=== PATIENT | female | born 1940 | race Caucasian/White ===

== ENCOUNTER → 2023-05-20 13:42 | Outpatient (CLI) | payer MEDICARE, SELFPAY ==
--- NOTE | ~2023-05-20 | CT_ITS ---
CT head without contrast Indication: Acute dementia Technique: Serial scans were obtained through the brain without the administration of contrast. Dose reduction technique was used on this scan by utilizing automated exposure control and iterative recon struction technique. The dose-length product (DLP) was 599.57 mGy-cm. Findings: Hypodensity in the inferior right frontal lobe is felt to be likely artifactually due to be am hardening, however vasogenic edema in this region is not completely excluded. No intracranial hemo rrhage or acute infarct seen. The ventricles and subarachnoid spaces are dilated, consistent with mi nimal atrophy. Minimal low attenuation regions are seen within the periventricular white matter bilat erally, likely representing changes from chronic microvascular ischemic disease. There is no evidence of edema, mass effect or midline shift. The visualized paranasal sinuses and mastoid air cells are clear. Impression: Probable artifactual hypodensity in the inferior right frontal lobe versus possibly vasogenic edema. Consider pre and postcontrast MR to better exclude underlying mass or other source of vasogenic edema . Atrophy and chronic white matter changes, as above. Reviewed, dictated and finalized at location . STAMPER Impression: Probable artifactual hypodensity in the inferior right frontal lobe versus poss ibly vasogenic edema. Consider pre and postcontrast MR to better exclude underl qi mass or other source of vasogenic edema. Atrophy and chronic white matter changes, as above.
== END ==
PROVIDERS: PCP Family Medicine Adolescent Medicine; Visit Provider Family Medicine Adolescent Medicine
DX: F03.90 Unspecified dementia, unspecified severity, without behavioral disturbance, psychotic disturbance, mood disturbance, and anxiety (principal)
CPT/HCPCS: 70450

== ENCOUNTER → 2023-06-06 13:20 | Outpatient (CLI) | payer MEDICARE, SELFPAY ==
--- NOTE | ~2023-06-06 | MR_ITS ---
EXAMINATION: MR brain/brain stem wo/w con DATE: 06/06/2023 14:42 INDICATION: Right frontal lobe mass. Abnormal head CT. TECHNIQUE: Magnetic resonance imaging (MRI) of the brain and brainstem was performed without and with 13 mL MultiHance intravenous contrast. COMPARISON: Head CT 05/20/2023 FINDINGS: In the right frontal lobe and insula, there is a subacute infarct characterized by increase d T2-weighted signal intensity, cortical increased T1-weighted signal intensity, and cortical enhance ment. There are scattered areas of nonspecific increased T2-weighted signal intensity in the cerebral white matter, which is within normal limits for the patient's age. There is no intracranial hemorrha ge or abnormal mass lesion. The ventricles are normal in size. There are likely changes of ocular aquilino s replacement surgeries. There is mild mucosal thickening in the paranasal sinuses. The mastoid air c ells are normal. IMPRESSION: 1. 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 Reviewed, dictated and finalized at location E. ESS DEVELOPMENT MANAGER
== END ==
PROVIDERS: PCP Family Medicine Adolescent Medicine; Visit Provider Family Medicine Adolescent Medicine
DX: R90.89 Other abnormal findings on diagnostic imaging of central nervous system (principal)
CPT/HCPCS: 70553; A9577

== ENCOUNTER 2023-10-14 16:10 | Inpatient (IN) | payer MEDICARE, SELFPAY ==
[2023-10-13] VITALS (21 sets, daily range): BP systolic 116–173; BP diastolic 39–75; PULSE 48–74; RESP 13–18; TEMP 36.2–36.9; O2SAT 97–100; BMI 22.9; BMI 25.4
--- NOTE | 2023-10-13 07:55 | ECG_ITS ---
SEE SCANNED COPY FOR CONFIRMED REPORT MTDD
[2023-10-13 08:08] LABS: Basophils Absolute Auto 0.1 K/mm3 (0.0-0.1); Basophils Percent Auto 0.9 % (0.2-1.2); Eosinophils Absolute Auto 0.5 K/mm3 (0-0.3); Eosinophils Percent Auto 6.9 % (0-4.4); Hematocrit 36.6 % (37.0-47.0); Hemoglobin 11.7 g/dL (12.0-15.0); Immature Granulocyte Absolute 0.02 K/mm3 (0.00-0.031); Immature Granulocyte Percent A 0.3 % (0-0.5); Lymphocytes Absolute Auto 1.78 K/mm3 (0.9-3.2); Lymphocytes Percent Auto 26.6 % (18.3-44.2); Mean Corpuscular Volume 90.8 fl (80-100); Mean Platelet Volume 10.4 fl (7.4-10.4); Monocytes Absolute Auto 0.7 K/mm3 (0.1-0.6); Monocytes Percent Auto 9.7 % (2.6-8.5); Neutrophils Absolute Auto 3.7 K/mm3 (1.3-6.7); Neutrophils Percent Auto 55.6 % (45.5-73.1); Platelet Count Result 211 k/mm3 (150-375); Red Blood Count 4.03 M/mm3 (4.2-5.4); White Blood Count 6.7 K/mm3 (4.5-10.0)
[2023-10-13 08:18] LABS: INR 1.3; Prothrombin Time 16.7 Seconds (11.1-14.7)
[2023-10-13 08:21] LABS: Anion Gap 7 mmol/L (4-12); Blood Urea Nitrogen 25 mg/dL (7-17); Calcium 9.8 mg/dL (8.4-10.2); Carbon Dioxide 25 mmol/L (22-30); Chloride 106 mmol/L (98-107); Estimated CRCL calculation 35 ml/min; Estimated Glomerular Filt Rate 60; Glucose 82 mg/dL (65-110); Potassium 4.1 mmol/L (3.4-5.0); Sodium 138 mmol/L (137-145)
--- NOTE | 2023-10-13 08:40 | WPDMODSED ---
Moderate Sedation Note-Pt Data Patient Data Diagnosis: Sick sinus syndrome Present Complaint: recent CVA, otherwise no complaints Procedure to be performed/Plan: implantation of permanent pacemaker Allergies Allergy/AdvReac Type Severity Reaction Status Date / Time Penicillins Allergy Unknown Unknown Verified 10/13/23 08:03 Home Medications Medication Instructions Recorded Confirmed Type aspirin 81 mg chewable tablet 162 mg PO HS 05/08/20 10/13/23 History (Aspirin Childrens) beclomethasone dipropionate 80 1 inh inhalation Q12H 05/08/20 05/12/23 History mcg/actuation HFA breath activated aerosol (Qvar RediHaler) benzonatate 200 mg capsule 200 mg PO TID PRN Cough 09/05/23 10/13/23 History dicyclomine 20 mg tablet 20 mg PO QID PRN Diarrhea 09/05/23 10/13/23 History fluocinonide 0.1 % topical cream 1 applic topical BID #30 grams 09/05/23 10/13/23 Rx alpha lipoic acid 200 mg capsule 200 mg PO DAILY 10/13/23 10/13/23 History ascorbic acid (vitamin C) 1,000 mg 1 g PO DAILY 10/13/23 10/13/23 History tablet calcium carbonate 600 mg-vitamin 2 tablet PO DAILY 10/13/23 10/13/23 History D3 10 mcg (400 unit) tablet (Calcium 600 + D(3)) carboxymethylcellulose 0.5 1 drp EACH EYE BID 10/13/23 10/13/23 History %-glycerin 0.9 % eye drops (Refresh Optive) escitalopram oxalate 10 mg tablet 10 mg PO HS 10/13/23 10/13/23 History hydrocodone 5 mg-acetaminophen 325 1 tablet PO TID PRN Pain (Scale 10/13/23 10/13/23 History mg tablet Score 4-6) losartan 100 mg tablet 100 mg PO HS 10/13/23 10/13/23 History montelukast 10 mg tablet 10 mg PO DAILY 10/13/23 10/13/23 History naproxen 500 mg tablet 500 mg PO BID 10/13/23 10/13/23 History nifedipine 30 mg tablet,extended 30 mg PO DAILY 10/13/23 10/13/23 History release omega-3 fatty acids 1,000 mg PO DAILY 10/13/23 10/13/23 History rosuvastatin 5 mg tablet 5 mg PO HS 10/13/23 10/13/23 History vitamin B complex 1 tablet PO DAILY 10/13/23 10/13/23 History vitamin E (dl, acetate) 180 mg 180 mg PO DAILY 10/13/23 10/13/23 History (400 unit) capsule Current Medications: Active Medications Sodium Chloride (Normal Saline Iv) 500 mls @ 30 mls/hr IV CONT .[id number] ONE Stop: 10/13/23 23:39 Sedation/Anesthesia: No previous sedation/anesthesia problems (including family history). [facility] Past Medical History Medical History Greater trochanteric bursitis of both hips Hypertension Osteoarthritis of right knee Pes anserine bursitis Pes anserinus bursitis of right knee Surgical History Surgical History H/O: History of eyelid surgery S/P scar revision Family History Family History Unknown Arthritis Cancer Heart disease Father Acute myocardial infarction Arthritis Heart disease Grandparent Acute myocardial infarction Arthritis Cancer Heart disease Mother Arthritis Breast cancer Cancer Depression Sibling Colon polyp Son Diabetes mellitus Social History Social History Smoking status: Never smoker Second hand tobacco smoke exposure: Yes Alcohol intake: current Alcohol use details: 1-2 per month Substance use: never Substance use type: does not use Living arrangements: alone Occupation/Education: retired Gender identity (if verbalized by the patient): Female Sexual Orientation (if Verbalized by the Patient): Straight or Heterosexual Spiritual care concerns: No Agree to blood products: Yes Mod Sed Physical Exam Physical Exam Pre Procedural Exam: Normal: Appearance ( pleasant elderly white female no distress), Neck, Throat, Airway, Lungs, Heart Size, Heart Rhythm, Neuro Exam and Extremities and Variation: Heart Rate ( heart rate 40) Hours since solid foods: 12 Hours [facility]
--- NOTE | 2023-10-13 10:17 | ECG_ITS ---
SEE SCANNED COPY FOR CONFIRMED REPORT MTDD
--- NOTE | 2023-10-13 10:18 | WPDCARDPROC ---
Cardiac Cath Procedure Note Date of procedure:: 10/13/23 Performing physician:: Tobias Henley MD Indication:: 6 sinus syndrome with symptomatic bradycardia Brief clinical history:: this is an 83-year-old woman with sick sinus syndrome also with asystolic pauses as long as 5-6 seconds admitted as an outpatient today for elective implantation of a dual-chamber pacemaker system. Procedure Procedure performed:: Implantation of permanent Biotronik dual-chamber pacemaker Sedation/Medication given:: fentanyl 25 mg Versed 2 mg case start time 9:09 a.m. case end time 10:04 a.m. sedation provided by Joan Bird RN, trained observer Access site:: left subclavian vein Estimated blood loss:: 20 cc Procedure note:: patient was brought to the cardiac catheterization the postabsorptive state where the left anterior chest wall was prepped and draped in standard fashion. 20 cc of lidocaine was infiltrated inferior to the clavicle after this an incision was made for about 1 in below the clavicle from the midclavicular line to the deltopectoral groove. Using electrocautery cutaneous hemostasis was provided. Following this sharp and blunt dissection was used to separate the subcutaneous tissue and identify the prepectoral fascia. Using blunt dissection a pacemaker pocket was created inferior to the incision. This was then packed with antibiotic soaked 4 x 4. Attention was then turned to venous access. Using 2 separate punctures the subclavian vein was punctured and 2 J-tip guidewires were advanced into the venous circulation down to the right atrial position under fluoroscopic visualization. Using 2 6 Nepali safe sheaths the pacemaker leads detailed below were advanced into the venous circulation and positioned into the right atrium. Attention was then turned to positioning of the ventricular lead. The stylet was withdrawn 3 cc syringe was used to fashion a J-tip stylet allowing the to steer the ventricular lead through the right ventricle out to the pulmonary artery position. Straight stylet was then placed into the lead was withdrawn and placed into the right ventricular apical position. The fixation screw was deployed and using the analyzer appropriate pacing and sensing performance was demonstrated. A 10 volts stimulation showed no evidence of extracardiac stimulation. Following this attention was turned to positioning of the atrial lead. Positioning of the atrial lead was somewhat challenging as I will was unable to rotate the lead into standard fluoroscopic position for the right atrial Appendage. A more lateral position was then identified with good lead movement however upon extending the deployment screw this lead stimulated a supraventricular tachycardia. The fixation screw was then withdrawn the lead was then repositioned in a more medial position but still not in what fluoroscopically appears to be the appendage. There was good electro mechanical engineer movement however. Following deployment of the fixation screw the lead was fixed into position. The analyzer demonstrated appropriate pacing sensing performance in this position. Once again a 10 volt stimulation showed no extracardiac stimulation. This was accepted as the final position. Following this the leads were secured to the base of the pocket using the suture sleeves and 2-0 silk ties. The retained sponge was removed from the pocket and vancomycin infused saline was used to irrigate the pocket. following this the generator was connected to the leads using the torque wrench and the entire assembly was placed into the newly created pocket. This was then closed in layers using 3-0 Vicryl in interrupted fashion for the subcutaneous tissue and 4-0 Vicryl in a running subcuticular fashion for the skin. The was dressed with Aquacel dressing. She was taken to the holding area for post implant recovery. The procedure was well tolerated and there were no apparent complications. Postop
--- NOTE | 2023-10-13 11:20 | SUR.PHASEII ---
End Phase II recovery. Pt. admitted to extended recovery after outpatient PPM insertion. Remains in TELEPHONE ANSWERING SERVICE OPERATOR 3 for now until Tele bed available for tranfer out. See PCS for further documentation.
--- NOTE | 2023-10-13 11:21 | ADMGEN ---
This patient, Radha Yu, was admitted to 3 Med Surg/Tele (remains in MED PEDS 3) as extended recovery after outpatient procedure. Patient/family oriented to hospital policies and general routines including ID bracelet, bed and alarms, visiting hours, pain management, procedures, bathroom and other care routines, personal items, smoking policy, room service/diet, and visiting hours. Information on how to activate the Rapid Response Team has been discussed. Patient/Family are encouraged to report perceived risks to care and to ask questions if they do not understand what they are told or what they should do.
[2023-10-13] MEDS: SODIUM CHLORIDE 0.9% IV 1,000 ML 50 ML IV CONT (15:20)
[2023-10-13] MEDS: NIFEdipine 30 MG TAB.ER.24 PO (16:46)
--- NOTE | 2023-10-13 17:00 | PC.NURSE ---
Report called to Rosa CROWLEY on Med/Surg Tele. Pt. is to transfer to [facility] via bed to complete extended recovery stay. Pt. and son, Rogerio, aware and agreeable.
--- NOTE | 2023-10-13 17:20 | ADMGEN ---
This patient, Radha Yu, was admitted to [facility]. Patient/family oriented to hospital policies and general routines including ID bracelet, bed and alarms, visiting hours, pain management, procedures, bathroom and other care routines, personal items, smoking policy, room service/diet, and visiting hours. Information on how to activate the Rapid Response Team has been discussed. Patient/Family are encouraged to report perceived risks to care and to ask questions if they do not understand what they are told or what they should do.
[2023-10-13] MEDS: ARTIFICIAL TEARS OPHTH SOLN 15 ML BOTTLE 1 DROP EACH EYE (17:43)
[2023-10-13] MEDS: ROSUVASTATIN 5 MG TABLET PO (20:18)
[2023-10-13] MEDS: ESCITALOPRAM OXALATE 10 MG TABLET PO (20:18)
[2023-10-13] MEDS: LOSARTAN POTASSIUM 100 MG TABLET PO (20:18)
[2023-10-13] MEDS: VANCOMYCIN 1,000 MG/NS 250 ML 1,000 MG/250 ML BAG 250 MG IVPB (20:48)
[2023-10-14] VITALS (12 sets, daily range): BP systolic 133–155; BP diastolic 52–61; PULSE 60–65; RESP 17–18; TEMP 36.2–36.5; O2SAT 97–100
--- NOTE | ~2023-10-14 | XR_ITS ---
EXAMINATION: XR chest 2V DATE: 10/15/2023 10:34 INDICATION: Pneumothorax post left-sided pacemaker placement TECHNIQUE: frontal and lateral views of the chest were obtained. COMPARISON: Chest radiograph dated 10/14/2023 FINDINGS: Patient is rotated slightly towards the right. No significant interval change in a moderate sized lef t pneumothorax with partial collapse of the left lung. Right lung remains clear. No pulmonary edema, pleural effusion or right-sided pneumothorax. Cardiomegaly. Dual lead pacemaker seen with leads proje cting over the expected locations of the right atrium and right ventricle. IMPRESSION: 1. No significant change in a moderate-sized left pneumothorax with partial collapse of the left lung . 2. Cardiomegaly. Reviewed, dictated and finalized at location A. IMPRESSION: 1. No significant change in a moderate-sized left pneumothorax with partial col lapse of the left lung. 2. Cardiomegaly.
--- NOTE | ~2023-10-14 | XR_ITS ---
EXAMINATION: XR chest 2V DATE: 10/14/2023 10:39 INDICATION: 24 hour postpacemaker insertion TECHNIQUE: PA and lateral views of the chest were obtained. COMPARISON: Chest radiograph dated 10/13/2023 FINDINGS: Patient is rotated towards the right. There is a new moderate-sized left pneumothorax. Mild left infr ahilar opacities most likely secondary atelectasis. Right lung is clear. No pulmonary edema, pleural effusion or right-sided pneumothorax. Cardia mediastinal silhouette is unchanged with mild cardiomega ly and no new midline shift to suggest tension. Dual lead pacemaker seen with leads projecting over t he expected locations of the right atrium and right ventricle. IMPRESSION: 1. Moderate-sized left pneumothorax. Findings were discussed with Ashley hathaway, the nurse caring for the patient, at 10:50 AM. 2. Mild cardiomegaly. Reviewed, dictated and finalized at location B. IMPRESSION: 1. Moderate-sized left pneumothorax. Findings were discussed with Ashley da silva, the nurse caring for the patient, at 10:50 AM. 2. Mild cardiomegaly.
--- NOTE | ~2023-10-14 | XR_ITS ---
EXAMINATION: XR chest 1V portable DATE: 10/13/2023 10:33 INDICATION: Pacer placement. TECHNIQUE: A single frontal view of the chest was obtained. COMPARISON: Chest 2 views 03/11/2019 FINDINGS: The patient is rotated to her right. There is mild atelectasis in right midlung zone. No pl eural effusion or pneumothorax. The heart size is normal. There is a left chest wall pacer with leads in the right atrium and right ventricle. IMPRESSION: 1. Mild atelectasis in right midlung zone. Reviewed, dictated and finalized at location A.
[2023-10-14] MEDS: ARTIFICIAL TEARS OPHTH SOLN 15 ML BOTTLE 1 DROP EACH EYE ×2 (08:59→16:56)
[2023-10-14] MEDS: MONTELUKAST SODIUM 10 MG TABLET PO (09:00)
[2023-10-14] MEDS: NIFEdipine 30 MG TAB.ER.24 PO (09:00)
--- NOTE | 2023-10-14 11:24 | PM.PNCARD ---
Progress Note: A&P Assessment and Plan (1) Sick sinus syndrome: Code(s): I49.5 - Sick sinus syndrome Status: Acute Assessment and Plan: Now s/p Biotronik pacer on 10/14/23. Pacemaker interrogation this morning showed normal functioning device Follow up CXR today showed moderate sized pneumo Continue observation and will have surgery follow along in the event a chest tube is needed. Arranged outpatient follow up in our office (2) Pneumothorax: Code(s): J93.9 - Pneumothorax, unspecified Status: Acute Assessment and Plan: Has a moderate sized pneumo s/p PPM placement. She is stable and in no respiratory distress. Consult general surgery. Appreciate recs (3) Presence of cardiac pacemaker: Onset Date: 10/2023 Code(s): Z95.0 - Presence of cardiac pacemaker Status: Acute Assessment and Plan: As above. Subjective Date/time seen: 10/14/23 11:24 Interval history: Cardiology follow up for sick sinus syndrome, s/p PPM placement Date of service 10/14/2023: Feels well today. Complaining of a cough. She denies any chest pain or shortness of breath. Notes that she has significant weakness in her legs but this is not new. Review of Systems Review of Systems: All systems reviewed & are unremarkable except as noted in HPI and below Exam Const: General: comfortable, no acute distress, alert and awake Orientation/consciousness: patient oriented x3 HENMT: Head: normal to inspection Eyes: General: appearance normal, both eyes and all related structures Pupils: Equal, round and reactive pupils present Neck: Neck: normal visual inspection, supple and no JVD Carotids: normal carotid upstroke Chest: Other: Left pectoral incision covered with sterile dressing. No drainage, no hematoma Resp: Effort & Inspection: normal respiratory effort Auscultation: clear to auscultation bilaterally and diminished lung sounds on the left Cardio: Rate: regular rate Rhythm: regular rhythm Heart sounds: S1 normal heart sound present, S2 normal heart sound present and Murmur heart sound present GI: Auscultation: normal bowel sounds Skin: General skin exam: normal color Neuro: General: patient oriented x3 Cranial nerves: Yes Equal, round and reactive pupils present Extrem: General: normal to inspection Psych: Appearance: grossly normal Mental Status: mental status grossly normal Objective Data Vital Signs Vital Signs: Vital Signs - 24 hr 10/13/23 11:45 10/13/23 12:15 10/13/23 12:00 Temperature Pulse Rate 62 61 62 Respiratory Rate 16 16 Blood Pressure 173/65 H 141/71 H Pulse Oximetry 100 100 Oxygen Delivery Room Air Room Air 10/13/23 13:15 10/13/23 17:30 10/13/23 17:45 Temperature 36.3 C L 36.3 C L Pulse Rate 74 58 L 60 Respiratory Rate 18 16 16 Blood Pressure 138/75 135/73 146/68 H Pulse Oximetry 99 98 99 Oxygen Delivery 10/13/23 17:20 10/13/23 14:00 10/13/23 16:00 Temperature Pulse Rate 67 60 Respiratory Rate Blood Pressure Pulse Oximetry 98 Oxygen Delivery Room Air 10/13/23 18:15 10/13/23 14:15 10/13/23 15:15 Temperature 36.3 C L Pulse Rate 62 61 61 Respiratory Rate 16 18 18 Blood Pressure 120/62 134/66 147/62 H Pulse Oximetry 99 98 99 Oxygen Delivery 10/13/23 16:15 10/13/23 20:02 10/13/23 20:00 Temperature 36.9 C 36.4 C L Pulse Rate 65 60 62 Respiratory Rate 16 16 Blood Pressure 171/68 H 122/73 Pulse Oximetry 100 98 Oxygen Delivery 10/13/23 23:19 10/14/23 00:00 10/14/23 03:49 Temperature 36.2 C L 36.2 C L Pulse Rate 62 61 61 Respiratory Rate 18 17 Blood Pressure 116/58 L 135/60 Pulse Oximetry 98 98 Oxygen Delivery 10/14/23 04:00 10/14/23 08:00 10/14/23 08:02 Temperature 36.5 C Pulse Rate 61 65 62 Respiratory Rate 18 Blood Pressure 138/52 L Pulse Oximetry 97 Oxygen Delivery 10/14/23 11:08 Temperature Pulse Rate 61 Respiratory Rate 18 B
--- NOTE | 2023-10-14 11:36 | PM.CNGS ---
Assessment and Plan Assessment and plan (1) Pneumothorax: Code(s): J93.9 - Pneumothorax, unspecified Status: Acute Assessment and Plan: Patient with an iatrogenic moderate-sized left pneumothorax status post pacemaker placement. Patient is currently stable and completely asymptomatic. We would recommend to continue to monitor closely overnight. Add incentive spirometry. Will repeat a chest x-ray tomorrow morning. If patient becomes symptomatic or has any deterioration, then she may require chest tube placement. This was discussed in detail with the patient. (2) Presence of cardiac pacemaker: Onset Date: 10/2023 Code(s): Z95.0 - Presence of cardiac pacemaker Status: Acute (3) Sick sinus syndrome: Code(s): I49.5 - Sick sinus syndrome Status: Acute Plan I have discussed the patient's case and plan of care with Dr. Andres. Thank you for allowing us to see the patient in consultation and we will continue to follow along with you. History of Present Illness Consult details Consult date: 10/14/23 Reason for consult: other (Left pneumothorax) Requesting physician: Melinda Main APN-C Narrative: This is an 83-year-old woman who presented yesterday for pacemaker placement for sick sinus syndrome. Her procedure was uneventful and postprocedure chest x-ray showed mild atelectasis. She was kept overnight for observation and her repeat chest x-ray this morning showed a moderate-sized left pneumothorax. We have now been consulted for surgical evaluation of the pneumothorax. She is seen on the medical floor and appears comfortable. She denies any chest pain or shortness of breath. Vital signs are stable. She is on room air with an O2 saturation of 98%. Review of Systems Review of Systems: All systems reviewed & are unremarkable except as noted in HPI and below PMFSH Past Medical History Medical History Greater trochanteric bursitis of both hips Hypertension Osteoarthritis of right knee Pes anserine bursitis Pes anserinus bursitis of right knee Surgical History Surgical History H/O: History of eyelid surgery History of permanent cardiac pacemaker placement (10/2023) S/P scar revision Family History Family History Unknown Arthritis Cancer Heart disease Father Acute myocardial infarction Arthritis Heart disease Grandparent Acute myocardial infarction Arthritis Cancer Heart disease Mother Arthritis Breast cancer Cancer Depression Sibling Colon polyp Son Diabetes mellitus Social History Social History Smoking packs per day: 0 Smoking cigarettes per day: 0.0 Years smoked: 0 Smoking pack-years: 0.00 Smoking status: Never smoker Second hand tobacco smoke exposure: Yes Alcohol intake: former Alcohol use details: 1-2 per month Substance use: never Substance use type: does not use Do You Feel Safe in your Home?: Yes Lack of Transportation: No Lack of Food: Never True Current Housing: I Have Housing Concerned About Future Housing: No Difficulty Paying Gas/Electric Bills: No Difficulty Paying for Meds: No Currently Unemployed: No Education: High School Diploma/GED Difficulty w/ Childcare or Family Care: No Living arrangements: alone Additional living arrangements comments: LIVES W/ DOG. Occupation/Education: retired Gender identity (if verbalized by the patient): Female Sexual Orientation (if Verbalized by the Patient): Straight or Heterosexual Spiritual care concerns: No Agree to blood products: Yes Meds Home Medications and Allergies Home Medications Medication Instructions Recorded Confirmed Type aspirin 81 mg chewable tablet 162 mg PO HS 05/08/2024 H
[2023-10-14] MEDS: BENZONATATE 100 MG CAPSULE 200 MG PO ×2 (11:53→18:52)
[2023-10-14] MEDS: ROSUVASTATIN 5 MG TABLET PO (22:25)
[2023-10-14] MEDS: LOSARTAN POTASSIUM 100 MG TABLET PO (22:25)
[2023-10-14] MEDS: ESCITALOPRAM OXALATE 10 MG TABLET PO (22:28)
[2023-10-15] VITALS: PULSE 61
[2023-10-15 04:00] VITALS: PULSE 62
[2023-10-15 06:00] VITALS: BP 136/60; PULSE 70; RESP 18; TEMP 36.9; O2SAT 100
[2023-10-15 08:00] VITALS: PULSE 69
[2023-10-15 10:50] VITALS: O2SAT 100
[2023-10-15] MEDS: NIFEdipine 30 MG TAB.ER.24 PO (10:57)
[2023-10-15] MEDS: MONTELUKAST SODIUM 10 MG TABLET PO (10:57)
[2023-10-15] MEDS: BENZONATATE 100 MG CAPSULE 200 MG PO (10:58)
[2023-10-15] MEDS: ARTIFICIAL TEARS OPHTH SOLN 15 ML BOTTLE 1 DROP EACH EYE (10:58)
--- NOTE | 2023-10-15 11:42 | PM.PNGS ---
Progress Note: A&P Assessment and Plan (1) Pneumothorax: Code(s): J93.9 - Pneumothorax, unspecified Status: Acute Assessment and Plan: Left pneumothorax stable on chest x-ray this morning. Okay to discharge from a surgical standpoint. Will repeat a chest x-ray next Friday and have her follow-up in the office with Dr. Andres next week. (2) Presence of cardiac pacemaker: Onset Date: 10/2023 Code(s): Z95.0 - Presence of cardiac pacemaker Status: Acute Plan I have discussed the patient's case and plan of care with Dr. Andres. Subjective Subjective Date/Time Seen: 10/15/23 11:42 Patient reports: no new complaints Interval history: Patient did well overnight. No shortness of breath or chest pain. No new complaints. Exam Const: General: comfortable and no acute distress Chest: Chest palpation & inspection: no crepitus Resp: Effort & Inspection: no respiratory distress Auscultation: diminished lung sounds (L>R) Objective Data Vital Signs Vital Signs: Vital Signs - 24 hr 10/14/23 12:00 10/14/23 12:02 10/14/23 14:00 Temperature 97.4 F L 97.3 F L Pulse Rate 62 62 60 Respiratory Rate 18 18 Blood Pressure 155/58 H 150/60 H Pulse Oximetry 100 100 10/14/23 16:00 10/14/23 20:00 10/15/23 00:00 Temperature Pulse Rate 62 61 61 Respiratory Rate Blood Pressure Pulse Oximetry 10/14/23 19:55 10/15/23 04:00 10/15/23 06:00 Temperature 97.5 F L 98.4 F Pulse Rate 63 62 70 Respiratory Rate 18 18 Blood Pressure 133/61 136/60 Pulse Oximetry 100 100 Intake/Output Intake/Output: Intake & Output 10/12/23 10/13/23 10/14/23 10/15/23 23:59 23:59 23:59 23:59 Intake Total 660 1090 740 Output Total 600 1050 Balance 60 40 740 Meds/Results Medications: Active Medications Generic Name Dose Route Start Last Admin Trade Name Freq PRN Reason Stop Dose Admin Hydrocodone Bitart/Acetaminophen 1 tab 10/13/23 13:02 Hydrocodone/Acetaminophen (*Crx) 5-325 Mg Tablet PO TID PRN Pain (Scale Score 4-6) Artificial Tears 1 drop 10/13/23 17:00 10/15/23 10:58 Artificial Tears Ophth Soln 15 Ml Bottle EACH EYE 1 drop BID FAIZAN Administration Benzonatate 200 mg 10/13/23 14:25 10/15/23 10:58 Benzonatate 100 Mg Capsule PO 200 mg TID PRN Administration Cough Dicyclomine HCl 20 mg 10/13/23 13:02 Dicyclomine Hcl 10 Mg Capsule PO QID PRN Diarrhea Escitalopram Oxalate 10 mg 10/13/23 21:00 10/14/23 22:28 Escitalopram Oxalate 10 Mg Tablet PO 10 mg HS FAIZAN Administration Losartan Potassium 100 mg 10/13/23 21:00 10/14/23 22:25 Losartan Potassium 100 Mg Tablet PO 100 mg HS FAIZAN Administration Montelukast Sodium 10 mg 10/14/23 09:00 10/15/23 10:57 Montelukast Sodium 10 Mg Tablet PO 10 mg DAILY FAIZAN Administration Nifedipine 30 mg 10/13/23 15:00 10/15/23 10:57 Nifedipine 30 Mg Tab.Er.24 PO 30 mg DAILY FAIZAN Administration Rosuvastatin Calcium 5 mg 10/13/23 21:00 10/14/23 22:25 Rosuvastatin 5 Mg Tablet PO 5 mg HS FAIZAN Administration Radiology Results: ITS Impressions Chest X-Ray 10/15/23 10:36 IMPRESSION: 1. No significant change in a moderate-sized left pneumothorax with partial collapse of the left lung. 2. Cardiomegaly.
--- NOTE | 2023-10-15 11:59 | PM.DS ---
DS: Admitting Diagnosis Discharge Date 10/15/2023 Admitting Diagnosis sick sinus syndrome DS: Discharge Diagnosis Discharge Diagnosis (1) Sick sinus syndrome: Code(s): I49.5 - Sick sinus syndrome Status: Acute Assessment and Plan: Now s/p Biotronik pacer on 10/13/23. Pacemaker interrogation 10/13 showed normal functioning device Follow up CXR 24 hours post PPM showed moderate sized pneumo Surgery consulted with recs to monitor for another day. Repeat CXR today showed stable pneumo Patient feeling well today with no shortness of breath or complaints of any kind. OK for discharge Arranged outpatient follow up in our office (2) Pneumothorax: Code(s): J93.9 - Pneumothorax, unspecified Status: Acute Assessment and Plan: Has a moderate sized pneumo s/p PPM placement. She is stable and in no respiratory distress. Stable on CXR today. Per surgery patient appropriate for discharge. (3) Presence of cardiac pacemaker: Onset Date: 10/2023 Code(s): Z95.0 - Presence of cardiac pacemaker Status: Acute Assessment and Plan: As above. DS: Summary Hospital Course Hospital Course: Admitted for observation following elective outpatient PPM placement on 10/13/23 Pacemaker interrogation 10/13 showed normal functioning device Follow up CXR 24 hours post PPM showed moderate sized pneumo Surgery consulted with recs to monitor for another day. Repeat CXR today showed stable pneumo Patient feeling well today with no shortness of breath or complaints of any kind. OK for discharge Arranged outpatient follow up in our office Time Spent with Patient Time attestation: Total time spent providing and/or coordinating discharge services: Exam Const: General: comfortable, no acute distress, alert and awake Orientation/consciousness: patient oriented x3 HENMT: Head: normal to inspection Eyes: General: appearance normal, both eyes and all related structures Pupils: Equal, round and reactive pupils present Neck: Neck: normal visual inspection, supple and no JVD Carotids: normal carotid upstroke Chest: Other: Left pectoral incision covered with sterile dressing. No drainage, no hematoma Resp: Effort & Inspection: normal respiratory effort Auscultation: clear to auscultation bilaterally and diminished lung sounds on the left Cardio: Rate: regular rate Rhythm: regular rhythm Heart sounds: S1 normal heart sound present, S2 normal heart sound present and Murmur heart sound present GI: Auscultation: normal bowel sounds Skin: General skin exam: normal color Neuro: General: patient oriented x3 Cranial nerves: Yes Equal, round and reactive pupils present Extrem: General: normal to inspection Psych: Appearance: grossly normal Mental Status: mental status grossly normal Discharge Plan Discharge Consulting providers: Fide Andres Discharging Clinician: Melinda Main Patient Disposition: Home, Self-Care Activity: other - see discharge instructions Diet: regular Wound Care Instructions: follow printed instructions, keep dressing dry and other - see discharge instructions Discharge Instructions: [facility] [address] [place] [address] DISCHARGE INSTRUCTIONS - POST PACEMAKER Activity 1. No driving until you are seen in the office for your incision check. 2. No lifting, pushing or pulling more than 5 pounds with affected arm for 1 MONTH 3. No lif
[2023-10-15 12:00] VITALS: PULSE 64
--- NOTE | 2023-10-15 14:30 | PC.NURSE ---
On 10/15/23, the CLAIM PROFESSIONAL,Jacqui Cary, provided care and completed [employer] documentation on this patient. I have reviewed the CLAIM PROFESSIONAL's documentation and agree with the findings.
== END 2023-10-15 14:30 | disposition home or self-care (01) | DRG 982 ==
LOC: ANHCATHLAB 16:43 → ANH3MEDSUR 16:43
PROVIDERS: Admitting Provider Specialist; PCP Family Medicine Adolescent Medicine; Visit Provider Nurse Practitioner
PROC: 0JH606Z Insertion of Pacemaker, Dual Chamber into Chest Subcutaneous Tissue and Fascia, Open Approach (ICD-10-PCS; CPT 33208; principal; 2023-10-13 08:30)
DX: J95.811 Postprocedural pneumothorax (principal); I47.10 Supraventricular tachycardia, unspecified; I49.5 Sick sinus syndrome; I10 Essential (primary) hypertension; M17.11 Unilateral primary osteoarthritis, right knee; Z86.73 Personal history of transient ischemic attack (TIA), and cerebral infarction without residual deficits; Z79.82 Long term (current) use of aspirin
CPT/HCPCS: 33208; 36415; 71045; 71046; 80048; 85025; 85610; 93005; A9270; C1779; C1785; J2250; J3010; J3370; J7030; J7040

== ENCOUNTER 2023-10-20 10:58 | Outpatient (CLI) | payer MEDICARE, SELFPAY ==
--- NOTE | ~2023-10-20 | XR_ITS ---
XR chest 2V DATE: 10/20/2023 11:28 INDICATION: Recent pneumothorax. TECHNIQUE: PA and lateral views COMPARISON: 10/15/2023 2 view chest FINDINGS: Interval mild improvement of left pneumothorax, left lung apex down approximately 3.1 cm co mpared to 5.2 cm on 10/15/2023. Left dual lead pacemaker with leads overlying right atrium and right ventricle. Heart size is normal. There is aortic calcification and unfolding. No pulmonary consolidation is evident. No pleural effusion. No right pneumothorax. Diffuse osteopenia. 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 IMPRESSION: Interval mild improvement of left pneumothorax since 10/15/2023 Reviewed, dictated and finalized at location B.
== END 2023-10-20 10:59 | disposition home or self-care (01) ==
LOC: ANHIMG 11:00
PROVIDERS: PCP Family Medicine Adolescent Medicine; Visit Provider Nurse Practitioner Family
DX: J93.9 Pneumothorax, unspecified (principal); Z95.0 Presence of cardiac pacemaker
CPT/HCPCS: 71046

== ENCOUNTER 2023-11-11 15:41 | Outpatient (CLI) | payer MEDICARE, SELFPAY ==
--- NOTE | ~2023-11-11 | XR_ITS ---
EXAM: XR toe 2nd LT min 2V DATE: 11/11/2023 15:59 HISTORY: concern for osteomyletitis . COMPARISON: None available. FINDINGS: Lateral view limited by overlapping anatomy. Osteopenia. No fracture or dislocation. No lyt ic or blastic lesion. Severe degenerative change at the first MTP joint. No erosion or periosteal sumeet nge. Possible small soft tissue ulcer over the third toe. IMPRESSION: No radiographic evidence of osteomyelitis. If clinical concern for osteomyelitis persists , consider MRI of the toes without and with contrast for further evaluation. Reviewed, dictated and finalized at location K. IMPRESSION: No radiographic evidence of osteomyelitis. If clinical concern for osteomyelitis persists, consider MRI of the toes without and with contrast for further evaluation.
== END 2023-11-11 15:42 ==
PROVIDERS: PCP Family Medicine Adolescent Medicine; Visit Provider Nurse Practitioner Family
DX: L03.032 Cellulitis of left toe (principal)
CPT/HCPCS: 73660

== ENCOUNTER 2023-11-14 10:02 | Outpatient (CLI) | payer MEDICARE, SELFPAY ==
--- NOTE | ~2023-11-14 | CT_ITS ---
EXAMINATION: CTA brain carotid DATE: 11/14/2023 10:53 INDICATION: Transient ischemic attack. TECHNIQUE: Computed tomographic angiography (CTA) of the head was performed without and with 100 mL O mnipaque-350 intravenous contrast. CTA of the neck was performed with intravenous contrast. Automated exposure control and iterative reconstruction technique were employed. The dose-length product was 1 361.77 mGy-cm. Maximum intensity projection and volume rendered 3D-reconstructions were created by lakeisha man technologist on a separate workstation. 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 There are scatte red areas of low attenuation in the cerebral white matter, which is within normal limits for the josiah ent's age. There is no intracranial hemorrhage, acute infarction, or abnormal intracranial mass lesio n. The ventricles are normal in size. There is mild mucosal thickening in the ethmoid sinuses. There are likely changes of ocular lens replacement surgeries. The mastoid air cells are normal. Left verte bral artery is dominant. There is no significant stenosis of basilar artery or the posterior cerebral arteries. The posterior communicating arteries are normal. There is no significant stenosis of the i ntracranial internal carotid arteries or anterior or middle cerebral arteries. Anterior communicating artery is normal. NECK CTA: There is mild scarring at the lung apices. There is a 5 mm nodule in the thyroid, likely no t clinically significant. There is no significant stenosis of right vertebral artery. There is modera te stenosis of the origin of left vertebral artery. There is moderate stenosis of mid left vertebral artery. There is plaque in the proximal internal carotid arteries. There is 35% stenosis of the proxi mal right internal carotid artery relative to normal distal artery lumen diameter (NASCET criteria). There is 0% stenosis of the proximal left internal carotid artery relative to normal distal artery joshua men diameter. 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 There is se josé miguel cervical spondylosis. IMPRESSION: 1. 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 2. No aneurysm or significant intracranial arterial stenosis. 3. Moderate stenosis of left vertebral artery. 4. 35% stenosis of the proximal right internal carotid artery relative to normal distal artery lumen diameter (NASCET criteria). 5. 0% stenosis of the proximal left internal carotid artery relative to normal distal artery lumen di ameter. 6. 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 Reviewed, dictated and finalized at location E. IMPRESSION: 1. 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 2. No aneurysm or significant intracranial arterial stenosis. 3. Moderate stenosis of left vertebral artery. 4. 35% stenosis of the proximal right internal carotid artery relative to yfn l distal artery lumen diameter (NASCET criteria). 5. 0% stenosis of the proximal left internal carotid artery relative to normal distal artery lumen diameter. 6. 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
[2023-11-14 10:22] LABS: Estimated Glomerular Filt Rate 53
== END 2023-11-14 10:03 ==
LOC: MICIMG 10:02
PROVIDERS: PCP Family Medicine Adolescent Medicine; Visit Provider Family Medicine Adolescent Medicine
DX: I67.1 Cerebral aneurysm, nonruptured (principal); Z86.73 Personal history of transient ischemic attack (TIA), and cerebral infarction without residual deficits; I65.21 Occlusion and stenosis of right carotid artery
CPT/HCPCS: 70496; 70498; Q9967

== ENCOUNTER 2024-08-24 10:54 | Outpatient (CLI) | payer MEDICARE, SELFPAY ==
--- NOTE | 2024-08-24 11:30 | NEURO_ITS ---
Impression: # Complains of numbness of lower extremities with gait dysfunction. ? # Neuropathy of lower extremities, Involving both motor and sensory nerves and particularly involving the left side more.. ? # Needle/EMG exam with neurogenic changes. # Left Babinski noted suggestive of superimposed upper motor neuron dysfunction As well. Nerve Conduction Studies Anti Sensory Summary Table ?Stim Site NR Peak (ms) P-T Amp (?V) Site1 Site2 Delta-P (ms) Dist (cm) Cesar (m/s) Left Sup Fibular Anti Sensory (Ant Lat Mall)??? NO RESPONSE 14 cm NR 14 cm Ant Lat Mall 16.0 Right Sup Fibular Anti Sensory (Ant Lat Mall)??? NO RESPONSE 14 cm NR 14 cm Ant Lat Mall 16.0 Left Sural Anti Sensory (Lat Mall)??? NO RESPONSE Calf NR Calf Lat Mall 16.0 Right Sural Anti Sensory (Lat Mall)??? NO RESPONSE Calf NR Calf Lat Mall 16.0 Motor Summary Table ?Stim Site NR Onset (ms) O-P Amp (mV) Site1 Site2 Delta-0 (ms) Dist (cm) Cesar (m/s) Left Peroneal Motor (Vastus Med)??? NO RESPONSE Ankle NR Popit Ankle 0.0 Popit NR Right Peroneal Motor (Vastus Med) Ankle ? 5.7 0.4 Popit Ankle 9.5 36.0 38 Popit ? 15.2 0.1 Left Tibial Motor (Abd Ricks Brev)??? NO RESPONSE Ankle NR Knee NR Right Tibial Motor (Abd Ricks Brev) Ankle ? 6.6 0.3 Knee Ankle 11.3 38.0 34 Knee ? 17.9 0.1 F Wave Studies ?NR F-Lat (ms) L-R F-Lat (ms) Left Peroneal (Mrkrs) (EDB)??? NO RESPONSE NR Right Peroneal (Mrkrs) (EDB) ? 69.59 Left Tibial (Mrkrs) (Abd Hallucis)??? NO RESPONSE NR Right Tibial (Mrkrs) (Abd Hallucis) ? 74.04 EMG ?Side Muscle Nerve Root Ins Act Fibs Amp Dur Recrt Comment Right AntTibialis Dp Br Fibular L4-5 Nml Nml Decr >12ms +2 Right Gastroc Tibial S1-2 Nml Nml Decr >12ms +2 Right Fibularis Long Sup Br Fibular L5-S1 Nml Nml Decr >12ms +2 Right Flex Dig Long Tibial L5-S2 Nml Nml Decr >12ms +2 Right Ext Dig Brev Dp Br Fibular L5, S1 Nml Nml Decr >12ms +2 Right QuadratusFem QuadFemoris L4-5, S1 Nml Nml Decr >12ms +2 Left AntTibialis Dp Br Fibular L4-5 Nml Nml Decr >12ms +2 Left Gastroc Tibial S1-2 Nml Nml Decr >12ms +2 Left Fibularis Long Sup Br Fibular L5-S1 Nml Nml Decr >12ms +2 Left Flex Dig Long Tibial L5-S2 Nml Nml Decr >12ms +2 Left Ext Dig Brev Dp Br Fibular L5, S1 Nml Nml Decr >12ms +2 Left QuadratusFem QuadFemoris L4-5, S1 Nml Nml Decr >12ms +2 MTDD
--- OUTSIDE RECORDS SUMMARY | 2024-08-24 13:02 | XMS_ITS | Clinical Summary ---
Author Organization [facility]opedic [facility] Address [address] [place] [address] Care Team Providers Care Construction Field Engineer Name Role Phone Moo Corona MD Primary Care Prov ider Allergies Active Allergy Reactions Criticality Noted Date Comments Penicillins Hives Medium 02/15/2024 Medications beclomethasone dipropionate (QVAR REDIHALER) 80 mcg/actuation inhaler Inhale 2 puffs 2 (two) times a day Active benzonatate (TESSALON) 200 mg capsule TAKE 1 CAPSULE BY MOUTH THREE TIMES DAILY NEEDED FOR COUGH Active dicyclomine (BENTYL) 10 mg capsule TAKE 1 CAPSULE BY MOUTH THREE TIMES DAILY WITH MEALS Active escitalopram (LEXAPRO) 10 mg tablet Take 1 tablet (10 mg total) by mouth daily 4 Active losartan (COZAAR) 100 mg tablet Take 1 tablet (100 mg total) by mouth daily Active montelukast (SINGULAIR) 10 mg tablet Take 1 tablet (10 mg total) by mouth daily Active NIFEdipine CC 30 mg 24 hr tablet Take 1 tablet (30 mg total) by mouth daily 4 Active rosuvastatin (CRESTOR) 5 mg tablet Take 1 tablet (5 mg total) by mouth daily Active aspirin 81 mg enteric coated tablet Take 1 tablet (81 mg total) by mouth daily Active HYDROcodone-acetam inophen (NORCO) 5-325 mg per tabletIndications: Pain Take 1 tablet by mouth every 6 (six) hours as needed Active triamcinolone (KENALOG) 0.1 % cream Apply topically 2 (two) times a day Apply to affected area 30 g 4 Active levothyroxine (SYNTHROID) 25 mcg tablet Take 1 tablet (25 mcg total) by mouth ad operations specialist before breakfast Active ondansetron ODT (ZOFRAN-ODT) 4 mg disintegrating tabletIndications: Nausea and Vomiting Take 1 tablet (4 mg total) by mouth every 6 (six) hours as needed for nausea or vomiting 20 tablet [address] (PROTONIX) 40 mg EC tabletIndications: GI Bleed Take 1 tablet (40 mg total) by mouth 2 (two) times a day 60 tablet 1 4 Active sucralfate (CARAFATE) 1 gram tablet Take 1 tablet (1 g total) by mouth 4 (four) times a day 120 tablet 1 4 Active cefuroxime (CEFTIN) 500 mg tablet 4 Active SantyL ointment 4 Active doxycycline hyclate 100 mg capsule 4 Active Vitamin C 500 mg tablet,chewable CHEW AND SWALLOW 1 TABLET ONCE DAILY 4 Active Active Problems Problem Noted Date Diagnosed Date Lightheadedness 02/15/2024 Melena 02/15/2024 PAD (peripheral artery disease) 12/16/2023 Assessment & Plan (12/16/2023 2:12 PM CDT): Impression: Patient is status post left femoral to peroneal bypass graft, thrombectomy left popliteal, anterior tibial and peroneal arteries, and left 2nd toe amputation. Reperfusion edema is noted to the left lower extremity. Bypass graft is patent with audible signals. [place] are intact 2 surgical incisions without concern for infection. 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 Erythema is noted to left 2nd toe ampuation site. No drainage or malodor noted. Patient is undergoing IV antibiotic therapy. Plan: Patient seen and evaluated with Dr. Moosa -ana removed at bedside. -continue daily dressing changes with wound gel, 4 x 4, Kerlix and Freddie bandage to amputation site. -continue recommendations for IV antibiotic therapy as per Infectious Disease. -recommend follow-up appointment with infectious disease as recommended as per discharge instructions. -patient to follow up in 1 week for re-evaluation with lower extremity arterial Doppler. Skin ulcer of second toe of left foot with necrosis of muscle 11/23/2023 Other specified anemias 11/23/2023 Ischemic leg pain 11/22/2023 Unspecified sequelae of cerebral infarction 11/01 Other hyperlipidemia 11/21/2023 Secondary hypertension 11/21/2023 Cardiac pacemaker in situ 10/13/2023 Overview (10/13/2023): Biotronik Amvia Edge Dual Pacemaker. Dx; SSS, Bradycardia, Pause. DOI 10/13/2023-Lory. Biotronik remote. Sick sinus syndrome 09/24/2023 Pain in left foot 08/08/2023 Pain in right foot 08/08/2023 Arthralgia of right ankle 08/08/2023 Encounters Date Type Department Care Team Description 07/27/2024 10:30 AM REEL SLITTER Ancillary Procedure [facility] Cardiology [address] [place] [phone] Cardiac pacemaker in situ; Sick sinus syndrome (HCC); Bradycardia 07/27/2024 Orders Only [facility] Cardiology [address] [place], [place] [address] [place] [address] Tobias Henley MD Cardiac pacemaker in situ (Primary Dx); Sick sinus syndrome (HCC); Bradycardia 06/10/2024 3:15 PM REEL SLITTER Orders Only [facility] Building 2 Wound Care [address] [address] 06/01/2024 9:00 AM REEL SLITTER Ancillary Procedure [facility] Cardiology [address] [place] [address] [place] [address] Cardiac pacemaker in situ; Sick sinus syndrome (HCC); Bradycardia 06/01/2024 Telephone [facility] Cardiology [address] [place] [address] [place] [phone] Tobias Henley MD from Last 3 Months Immunizations Immunization Administration Dates Next Due Influenza, Quadrivalent, Hig h Dose, Preservative Free, Intrr 03/19/2023,03/22/2022,03/05/2021 Influenza, Trivalent, High D ose, Split, Preservative Free, Intramuscular 03/04/2017 Pneumococcal Conjugate Pcv20 09/11/2021 RSV Vaccine, Pref, Recombina nt, Subunit, Adjuvanted, PF, IM (Arexvy) 05/08/2023 Tdap 03/04/2017 ZOSTER Recombinant 11/23/2021,09/26/2021 Surgical History Surgery Date Site/Laterality Comments SECTION CARDIAC PACEMAKER PLACEMENT ESOPHAGOGASTRODUODENOSCOPY Medical History Medical History Date Comments Bradycardia Hypertension Stroke (HCC) HLD (hyperlipidemia) Family History Medical History Relation Name Comments Heart attack Father Heart attack Sister Relation Name Status Comments Father Mother Sister Alive Social History Tobacco Use Types Packs/Day Years Used Date Smoking Tobacco: Former Cigarettes Smokeless Tobacco: Never Tobacco Cessation:Counseling Given: Not Answered [facility] Utilities Answer Date Recorded In the past 12 months has [employer], gas, oil, or water [employer] threatened to shut off services in your home? No 02/16/2024 Social Connection and Isolat ion Panel [NHANES] Answer Date Recorded In a typical week, how many times do you talk on the phone with family, friends, or neighbors? More than three times a week 02/16/2024 How often do you get togethe r with friends or relatives? More than three times a week 02/16/2024 How often do you attend [facility] or jainism services? More than 4 times per year 02/16/2024 Do you belong to any clubs o r organizations such as taoism groups, unions, fraternal or athletic groups, or school groups? No 02/16/2024 How often do you attend meet ings of the clubs or organizations you belong to? Never 02/16/2024 Are you , , di vorced, , never , or living with a partner? 02/16/2024 AUDIT-C Answer Date Recorded Q1: How often do you have a drink containing alcohol? Never 02/17/2024 Q2: How many drinks containi ng alcohol do you have on a typical day when you are drinking? Patient does not drink Q3: How often do you have si x or more drinks on one occasion? Never 02/17/2024 Overall Financial Resource Strain (CARDIA) Answe r Date Recorded How hard is it for you to pa y for the very basics like food, housing, medical care, and heating? Not very hard 02/16/2024 Hunger Vital Sign Answer Date Recorded Within the past 12 months, y ou worried that your food would run out before you got the money to buy more. Never true 02/16/20 24 Within the past 12 months, t he food you bought just didn't last and you didn't have money to get more. Never true 02/16/2024 PRAPARE - Transportation Answer Date Re corded In the past 12 months, has l ack of transportation kept you from medical appointments or from getting medications? No 01/31 In the past 12 months, has l ack of transportation kept you from meetings, work, or from getting things needed for daily living? No 02/16/2024 Housing Stability Vital Sign Answer Jason e Recorded In the last 12 months, was t here a time when you were not able to pay the mortgage or rent on time? No 02/16/2024 In the past 12 months, how m any times have you moved where you were living? 0 02/16/2024 At any time in the past 12 m [facility], were you homeless or living in a correction (including now)? No 02/16/2024 Personal Safety Answer Date Recorded Have you ever been in or are you currently in a harmful physical or emotional relationship or is someone making you feel afraid or unsafe? Denies 02/15/2024 Comments No Sex and Gender Information Value Date Recorded Sex Assigned at Not on file Legal Sex Female 6:34 PM REEL SLITTER Gender Identity Not on file Sexual Orientation Not on file Obstetrics History Last Filed Vital Signs Vital Sign Reading Time Taken Comments Blood Pressure 113/68 04/08/2024 3:41 PM REEL SLITTER Pulse 63 04/08/2024 3:41 PM REEL SLITTER Temperature 36.4 C (97.5 F) 04/08/2024 3:41 PM REEL SLITTER Respiratory Rate 18 04/08/2024 3:41 PM REEL SLITTER Oxygen Saturation 99% 04/08/2024 3:41 PM REEL SLITTER Inhaled Oxygen Concentration - - Weight 49.8 kg (109 lb 12.8 oz) 04/08/2024 3:41 PM REEL SLITTER Height 152.4 cm (5') 04/08/2024 3:41 PM REEL SLITTER Body Mass Index 21.44 04/08/2024 3:41 PM REEL SLITTER Plan of Treatment Health Maintenance Due Date Last Done Comments Depression Screening 1940 Osteoporosis Screening-Bone Density Scan 1941 Hepatitis B Screening 1959 Well Visit 65+ 2006 Covid-19 Vaccine (2023-2 5 season) 2024 03/19/2023, 03/22/2022, 09/11/2021, Additional history exists Influenza Vaccine (#1) 2024 , 03/22/2022, 03/05/2021, Additional history exists Fall Risk Assessment 02/22/2025 02/23/2024 DTaP/Tdap/Td Vaccine (2 - Td or Tdap) 03/04/2027 03/04/2017 Pneumococcal vaccine 65+ Completed 09/11/2021 Zoster Vaccine Completed 11/23/2021, 09/26/2021 Medical Devices Implanted Type Area Medical Support Specialist Device Identifier Shelf Expiration Date Model / Serial / Lot [employer]l [employer] 8mm 40cm Stretch Peripheral Thin Wall Graft Vascular [employer] [id number] - [id number] - [id number] Implanted:Qty: 1 on 11/26/2023 by Dylan Arango MD at [facility] Graft Left: Leg [employer] 01/26/2028 [id number] / [id number] / Pacemaker Pacemaker N/A: Heart Procedures Procedure Name Priority Date/Time Associated Diagnosis Comments DEVICE CHECK - REMOTE Routine 07/27/2024 2:17 PM REEL SLITTER Cardiac pacemaker in situ Sick sinus syndrome (HCC) Bradycardia DEVICE CHECK - REMOTE Routine 06/01/2024 9:56 AM REEL SLITTER Cardiac pacemaker in situ Sick sinus syndrome (HCC) Bradycardia from Last 3 Months Results * DEVICE CHECK - REMOTE (07/27/2024 2:17 PM REEL SLITTER) Anatomical Region Laterality Modality Other Narrative 08/06/2024 8:34 AM REEL SLITTER Biotronik Amvia Edge Dual Pacemaker. Dx; SSS, Bradycardia, Pause. DOI 10/13/2023-Lory. Biotronik remote. 06/01/24-MJF PAF-contraindication to AC (call note). Routine DDD Pacemaker Remote. Transmission attached. Battery status: 90% remaining battery life to ANDER. Stable lead impedances, pacing and sensing thresholds. Presenting rhythm: AP-VS. AP-81%, THREADING MACHINE TENDER-14%. 4 AT/AF episodes noted, longest episode was 14 hours on 05/31/24 in duration, IEGM demonstrates Afib. No Ventricular high rate episodes detected. Medications: ASA 81 mg. See scanned report. Office pacemaker follow up: due 6-9 months. Biotronik remote f/u 11/02/2024. Minal Licea RN Tobias Henley MD CV CARDIAC SERVICES PROC EDURES Final Result * DEVICE CHECK - REMOTE (06/01/2024 9:56 AM REEL SLITTER) Anatomical Region Laterality Modality Other Narrative 06/04/2024 1:58 PM REEL SLITTER Biotronik Amvia Edge Dual Pacemaker. Dx; SSS, Bradycardia, Pause. DOI 10/13/2023-Lory. Biotronik remote. Unscheduled Biotronik remote alert and notification for atrial burden above the limit. Battery status Ok with 95% remaining battery life. AP 58%, THREADING MACHINE TENDER 32%. Fourteen atrial monitoring episodes noted. Stored iegm's highly suspicious for AFib. AT-AF burden 64.9% for 24 hours. Longest AT/AF episode was 14 hours and 50 minutes on 05/31/24. Medications; ASA 81 mg, Plavix restarted on 02/23/2024 per discharge summary. See scanned report. Office follow-up with Dr. Henley scheduled 01/05/2025. Biotronik remote follow-up scheduled 07/27/2024. I contacted patient's son Duane and informed of the above information. He informed me that his mother was hospitalized December to February 20, 2024 for bleeding ulcer and April of 2023 hospitalized for stroke. Minal Licea, CARLINE Tobias Henley MD CV CARDIAC SERVICES PROC EDURES Final Result from Last 3 Months Insurance [facility] MEDICARE [facility] MEDICARE Advance Directives For more information, please contact: [phone] * Full Code (Latest Code Status on File) Date Activated Date Inactivated Comments 02/17/2024 6:58 AM 02/23/2024 5:20 PM * LIMITED - No CPR Date Activated Date Inactivated Comments 02/15/2024 7:16 PM 02/17/2024 6:58 AM Question Answer Comments Provide aggressive medical m anagement before a full cardiopulmonary arrest occurs. Use antibiotics, IV Fluids, and medical treatment unless specifically selected below: No intubation * LIMITED - No CPR Date Activated Date Inactivated Comments 11/23/2023 5:22 AM 12/01/2023 9:16 PM Question Answer Comments Provide aggressive medical m anagement before a full cardiopulmonary arrest occurs. Use antibiotics, IV Fluids, and medical treatment unless specifically selected below: No intubation * Full Code Date Activated Date Inactivated Comments 11/23/2023 3:10 AM 11/23/2023 5:21 AM Healthcare Agents on File Name Relationship Healthcare Agent [facility] Communication [facility] Care Agent Care Teams Construction Field Engineer Relationship Specialty Start Date End Date Moo Corona MD [address] [place] [address] PCP - General Family Medicine 06/12/23
--- OUTSIDE RECORDS SUMMARY | 2024-08-24 13:02 | XMS_ITS | Referral Summary ---
Author Organization [facility] Address [address] [place] [address] Care Team Providers Care Railroad Wheels And Axles Inspector Name Role Phone Moo Corona MD Primary Care Prov ider Encounters Date Type Department Care Team Description 07/27/2024 Orders Only [facility] Cardiology [address] [place] [phone] Tobias Henley MD Cardiac pacemaker in situ (Primary Dx); Sick sinus syndrome (HCC); Bradycardia 07/27/2024 10:30 AM MANAGER ASSESSMENT Ancillary Procedure [facility] Cardiology [address] [place] [address] [place] [phone] Cardiac pacemaker in situ; Sick sinus syndrome (HCC); Bradycardia 06/10/2024 3:15 PM MANAGER ASSESSMENT Orders Only [facility] Medical Office Building 2 Wound Care [address] [facility] [address] [place] [address] 06/01/2024 Telephone [facility] Cardiology [address] [place] [phone] Tobias Henley MD 06/01/2024 9:00 AM MANAGER ASSESSMENT Ancillary Procedure [facility] Cardiology [address] [place] [address] [place] [phone] Cardiac pacemaker in situ; Sick sinus syndrome (HCC); Bradycardia from Last 3 Months Allergies Active Allergy Reactions Criticality Noted Date [...] 1 tablet (25 mcg total) by mouth supervisor powdered sugar before breakfast Active ondansetron ODT (ZOFRAN-ODT) 4 [...] Bypass graft is patent with audible signals. Genevieve are intact 2 surgical incisions without concern for infection. 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 Erythema is noted to left 2nd toe ampuation site. No drainage or malodor noted. Patient is undergoing IV antibiotic therapy. Plan: Patient seen and evaluated with Dr. Arango -genevieve removed at bedside. -continue daily dressing changes [...] foot 08/08/2023 Arthralgia of right ankle 08/08/2023 Immunizations Immunization Administration Dates Next Due Influenza, Quadrivalent, Hig h Dose, Preservative Free, Intrr 03/19/2023,03/22/2022,03/05/2021 Influenza, Trivalent, High D ose, Split, Preservative Free, Intramuscular 03/04/2017 Pneumococcal Conjugate Pcv20 09/11/2021 RSV Vaccine, Pref, Recombina nt, Subunit, Adjuvanted, PF, IM (Arexvy) 05/08/2023 Tdap 03/04/2017 ZOSTER Recombinant 11/23/2021,09/26/2021 Social History Tobacco Use Types Packs/Day Years Used Date Smoking Tobacco: Former Cigarettes Smokeless Tobacco: Never Tobacco Cessation:Counseling Given: Not Answered [facility] Utilities Answer Date Recorded In the past 12 months has [employer], gas, oil, or water [employer] threatened to shut off services in your [...] week 02/16/2024 How often do you attend chur or anglican services? More than 4 times per year 02/16/2024 Do you belong to any clubs o r organizations such as anabaptist groups, unions, fraternal or athletic groups, or [...] any time in the past 12 m [facility], were you homeless or living in a group home (including now)? No 02/16/2024 Personal Safety Answer Date Recorded Have you ever been in or are you currently in a harmful physical or emotional relationship or is someone making you feel afraid or unsafe? Denies 02/15/2024 Comments No Sex and Gender Information Value Date Recorded Sex Assigned at Not on file Legal Sex Female 6:34 PM MANAGER ASSESSMENT Gender Identity Not on file Sexual Orientation Not on file Last Filed Vital Signs Vital Sign Reading Time Taken Comments Blood Pressure 113/68 04/08/2024 3:41 PM MANAGER ASSESSMENT Pulse 63 04/08/2024 3:41 PM MANAGER ASSESSMENT Temperature 36.4 C (97.5 F) 04/08/2024 3:41 PM MANAGER ASSESSMENT Respiratory Rate 18 04/08/2024 3:41 PM MANAGER ASSESSMENT Oxygen Saturation 99% 04/08/2024 3:41 PM MANAGER ASSESSMENT Inhaled Oxygen Concentration - - Weight 49.8 kg (109 lb 12.8 oz) 04/08/2024 3:41 PM MANAGER ASSESSMENT Height 152.4 cm (5') 04/08/2024 3:41 PM MANAGER ASSESSMENT Body Mass Index 21.44 04/08/2024 3:41 PM MANAGER ASSESSMENT Plan of Treatment Not on file Medical Devices Implanted Type Area Deputy Commonwealth'S Attorney Device Identifier Shelf Expiration Date Model / Serial / Lot [employer] 8mm 40cm Stretch Peripheral Thin Wall Graft Vascular [employer] [id number] - [id number] - [id number] Implanted:Qty: 1 on 11/26/2023 by Dylan Arango MD at [facility] Graft Left: Leg [employer] 01/26/2028 [id number] / [id number] / Pacemaker Pacemaker N/A: Heart Procedures Procedure Name Priority Date/Time Associated Diagnosis Comments DEVICE CHECK - REMOTE Routine 07/27/2024 2:17 PM MANAGER ASSESSMENT Cardiac pacemaker in situ Sick sinus syndrome (HCC) Bradycardia DEVICE CHECK - REMOTE Routine 06/01/2024 9:56 AM MANAGER ASSESSMENT Cardiac pacemaker in situ Sick sinus syndrome (HCC) Bradycardia from Last 3 Months Results * DEVICE CHECK - REMOTE (07/27/2024 2:17 PM MANAGER ASSESSMENT) Anatomical Region Laterality Modality Other Narrative 08/06/2024 8:34 AM MANAGER ASSESSMENT [employer] Amvia Edge Dual Pacemaker. Dx; SSS, Bradycardia, Pause. DOI 10/13/2023-Lory. [employer] remote. 06/01/24-EVA PAF-contraindication to AC (call note). Routine DDD Pacemaker Remote. Transmission attached. Battery status: 90% remaining battery life to ANDER. Stable lead impedances, pacing and sensing thresholds. Presenting rhythm: AP-VS. AP-81%, HYDROELECTRIC PLANT OPERATOR-14%. 4 AT/AF episodes noted, longest episode was 14 hours on 05/31/24 in duration, IEGM demonstrates Afib. No Ventricular high rate episodes detected. Medications: ASA 81 mg. See scanned report. Office pacemaker follow up: due 6-9 months. Biotronik remote f/u 11/02/2024. Minal Licea RN Tobias Henley MD CV CARDIAC SERVICES PROC EDURES Final Result * DEVICE CHECK - REMOTE (06/01/2024 9:56 AM MANAGER ASSESSMENT) Anatomical Region Laterality Modality Other Narrative 06/04/2024 1:58 PM MANAGER ASSESSMENT Biotronik Amvia Edge Dual Pacemaker. Dx; SSS, Bradycardia, Pause. DOI 10/13/2023-Lory. Biotronik remote. Unscheduled Biotronik remote alert and notification for atrial burden above the limit. Battery status Ok with 95% remaining battery life. AP 58%, HYDROELECTRIC PLANT OPERATOR 32%. Fourteen atrial monitoring episodes noted. Stored [...] of 2023 hospitalized for stroke. Minal Licea, RN Tobias Henley MD CV CARDIAC SERVICES PROC EDURES Final Result from Last 3 Months Insurance [facility] MEDICARE [employer] MEDICARE Advance Directives For more information, please contact: [phone] * Full Code (Latest Code Status on [...] Agents on File Name Relationship Healthcare Agent [facility] p Communication Warren [facility] Health Care Agent Care Teams Railroad Wheels And Axles Inspector Relationship Specialty Start Date End Date Moo Corona MD [address] [place] [address] PCP - General Family Medicine 06/12/23
--- OUTSIDE RECORDS SUMMARY | 2024-08-24 13:02 | XMS_ITS | Clinical Summary ---
Author Organization [facility] Address [address] [place] [id number] Care Team Providers Care Class 1 Owner Operator Name Role Phone Unavailable Primary Care Provider Unavailabl e Social History Tobacco Use Types Packs/Day Years Used Date Smoking Tobacco: Never Assessed Comments Unknown Sex and Gender Information Value Date Recorded Sex Assigned at Not on file Legal Sex Female 4:22 PM CDT Gender Identity Not on file Sexual Orientation Not on file Plan of Treatment Health Maintenance Due Date Last Done Comments DTaP, Tdap and Td Vaccines ( 1 - Tdap) 1960 Zoster Vaccines (1 of 2) 1991 Dexa Scan (General) 2006 Pneumococcal Vaccine: 65+ Ye ars (1 of 1 - PCV) 2006 RSV Immunization or 60+ Years (1 - 1-dose 75+ series) 2016 COVID-19 Vaccine (2023-2 5 season) 2024 Influenza Adult (#1) 2024 Meningococcal B Vaccine Aged Out No l onger eligible based on patient's age to complete this topic Meningococcal Vaccine Aged Out No samantha abby eligible based on patient's age to complete this topic RSV Immunizations Under 20 Months Aged Out No longer eligible based on patient's age to complete this topic
--- OUTSIDE RECORDS SUMMARY | 2024-08-24 13:02 | XMS_ITS | Encounter Summary ---
Author Organization [facility] Healthcare Address [address] [place] [address] Care Team Providers Care Show Operations Supervisor Name Role Phone Moo Corona MD Primary Care Prov ider Encounter Details Date Type Department Care Team (Late st Contact Info) Description 10/15/2023 Orders Only [facility] Health Information Management [address] [place] [id number] Scanning, Provider Social History Tobacco Use Types Packs/Day Years Used Date Smoking Tobacco: Former Cigarettes Smokeless Tobacco: Never Personal Safety Answer Date Recorded Have you ever been in or are you currently in a harmful physical or emotional relationship or is someone making you feel afraid or unsafe? Denies 09/20/2023 Comments Unknown Sex and Gender Information Value Date Recorded Sex Assigned at Not on file Legal Sex Female 6:34 PM SUPERVISOR METER REPAIR SHOP Gender Identity Not on file Sexual Orientation Not on file documented as of this encounter Plan of Treatment Not on file documented as of this encounter Procedures Procedure Name Priority Date/Time Associated Diagnosis Comments SCAN - RADIOLOGY/IMAGING 10/15/2023 documented in this encounter Results * SCAN - RADIOLOGY/IMAGING (10/15/2023) Anatomical Region Laterality Modality Other us Provider Scanning Final Result documented in this encounter Visit Diagnoses Not on filedocumented in this encounter Additional Health Concerns Infection Onset Date 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
== END 2024-08-24 10:55 | disposition home or self-care (01) ==
LOC: ANHNEURO 10:57
PROVIDERS: PCP Family Medicine Adolescent Medicine; Visit Provider Family Medicine Adolescent Medicine
DX: G60.0 Hereditary motor and sensory neuropathy (principal); R29.2 Abnormal reflex
CPT/HCPCS: 95886; 95910

== ENCOUNTER 2024-10-05 11:28 | Outpatient (CLI) | payer MEDICARE, SELFPAY ==
[2024-10-05 11:54] LABS: Hematocrit 34.4 % (37.0-47.0); Hemoglobin 10.9 g/dL (12.0-15.0); Mean Corpuscular HGB Conc 31.7 g/dl (32-36); Mean Corpuscular Hemoglobin 29.4 pg (26-34); Mean Corpuscular Volume 92.7 fl (80-100); Mean Platelet Volume 9.7 fl (7.4-10.4); Platelet Count Result 213 k/mm3 (150-375); Red Blood Count 3.71 M/mm3 (4.2-5.4); Red Cell Distribution Width 13.8 % (11.5-14.5); White Blood Count 5.3 K/mm3 (4.5-10.0)
[2024-10-05 12:08] LABS: Alanine Aminotransferase 26 U/L (6-35); Albumin Level 4.5 g/dL (3.5-5.1); Alkaline Phosphatase 57 U/L (38-126); Anion Gap 9 mmol/L (4-12); Aspartate Amino Transferase 35 U/L (14-36); Bilirubin,Total 0.5 mg/dL (0.2-1.3); Blood Urea Nitrogen 27 mg/dL (7-17); Calcium 9.2 mg/dL (8.4-10.2); Carbon Dioxide 27 mmol/L (22-30); Chloride 101 mmol/L (98-107); Estimated Glomerular Filt Rate 53; Glucose 105 mg/dL (65-110); Potassium 4.3 mmol/L (3.4-5.0); Sodium 137 mmol/L (137-145)
[2024-10-05 12:11] LABS: Hemoglobin A1C 5.5 % (<5.7)
--- OUTSIDE RECORDS SUMMARY | 2024-10-05 12:15 | XMS_ITS | Referral Summary ---
Author Organization [facility] Address [address] [place] [address] Care Team Providers Care Systems Coordinator Name Role Phone Moo Corona MD Primary Care Prov ider Encounters Date Type Department Care Team Description 07/27/2024 Orders Only [facility] Medical [facility] Cardiology [address] [place] [phone] Tobias Henley MD Cardiac pacemaker in situ (Primary Dx); Sick sinus syndrome (HCC); Bradycardia 07/27/2024 10:30 AM ENVIRONMENTAL PROJECTS ADVISOR Ancillary Procedure [facility] Cardiology [address] [place] [phone] Cardiac pacemaker in situ; Sick sinus [...] 1 tablet (25 mcg total) by mouth survey statistician before breakfast Active ondansetron ODT (ZOFRAN-ODT) 4 [...] Bypass graft is patent with audible signals. [place] are intact 2 surgical incisions without concern for infection. 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 Erythema is noted to left 2nd toe ampuation site. No drainage or malodor noted. Patient is undergoing IV antibiotic therapy. Plan: Patient seen and evaluated with Dr. Arango -ana removed at bedside. -continue daily dressing [...] Tobacco: Never Tobacco Cessation:Counseling Given: Not Answered [facility] Utilities Answer Date Recorded In the past 12 months has th e electric, gas, oil, or water company threatened to shut off services in your [...] 02/16/2024 How often do you attend chur ch or yarsani services? More than 4 times per year 02/16/2024 Do you belong to any clubs o r organizations such as advent groups, unions, fraternal or athletic groups, or [...] any time in the past [address] [facility], were you homeless or living in a [...] on file Legal Sex Female 6:34 PM ENVIRONMENTAL PROJECTS ADVISOR Gender Identity Not on file Sexual Orientation Not on file Last Filed Vital Signs Vital Sign Reading Time Taken Comments Blood Pressure 113/68 04/08/2024 3:41 PM ENVIRONMENTAL PROJECTS ADVISOR Pulse 63 04/08/2024 3:41 PM ENVIRONMENTAL PROJECTS ADVISOR Temperature 36.4 C (97.5 F) 04/08/2024 3:41 PM ENVIRONMENTAL PROJECTS ADVISOR Respiratory Rate 18 04/08/2024 3:41 PM ENVIRONMENTAL PROJECTS ADVISOR Oxygen Saturation 99% 04/08/2024 3:41 PM ENVIRONMENTAL PROJECTS ADVISOR Inhaled Oxygen Concentration - - Weight 49.8 kg (109 lb 12.8 oz) 04/08/2024 3:41 PM ENVIRONMENTAL PROJECTS ADVISOR Height 152.4 cm (5') 04/08/2024 3:41 PM ENVIRONMENTAL PROJECTS ADVISOR Body Mass Index 21.44 04/08/2024 3:41 PM ENVIRONMENTAL PROJECTS ADVISOR Plan of Treatment Not on file Medical Devices Implanted Type Area Marketing Agent Device Identifier Shelf Expiration Date Model / Serial / Lot [employer] 8mm 40cm Stretch Peripheral Thin Wall Graft Vascular [employer] [id number] - [id number] - [id number] Implanted:Qty: 1 on 11/26/2023 by Dylan Arango MD at [facility] Graft Left: Leg [employer] 01/26/2028 [id number] / [id number] / Pacemaker Pacemaker N/A: Heart Procedures Procedure Name Priority Date/Time Associated Diagnosis Comments DEVICE CHECK - REMOTE Routine 07/27/2024 2:17 PM ENVIRONMENTAL PROJECTS ADVISOR Cardiac pacemaker in situ Sick sinus syndrome (HCC) Bradycardia from Last 3 Months Results * DEVICE CHECK - REMOTE (07/27/2024 2:17 PM ENVIRONMENTAL PROJECTS ADVISOR) Anatomical Region Laterality Modality Other Narrative 08/06/2024 8:34 AM ENVIRONMENTAL PROJECTS ADVISOR Biotronik Amvia Edge Dual Pacemaker. Dx; SSS, Bradycardia, Pause. DOI 10/13/2023-Lory. Biotronik remote. 06/01/24-MJF PAF-contraindication to AC (call note). Routine DDD Pacemaker Remote. Transmission attached. Battery status: 90% remaining battery life to ANDER. Stable lead impedances, pacing and sensing thresholds. Presenting rhythm: AP-VS. AP-81%, GRAIN MERCHANDISING MANAGER-14%. 4 AT/AF episodes noted, longest episode was 14 hours on 05/31/24 in duration, IEGM demonstrates Afib. No Ventricular high rate episodes detected. Medications: ASA 81 mg. See scanned report. Office pacemaker follow up: due 6-9 months. Biotronik remote f/u 11/02/2024. Minal Licea RN oTbias Henley MD CV CARDIAC SERVICES PROC EDURES Final Result from Last 3 Months Insurance AETNA MEDICARE AETNA MEDICARE Advance Directives For more information, please contact: [phone] * Full Code (Latest Code Status on [...] Agents on File Name Relationship Healthcare Agent Relationshi p Communication Warren Yu [facility] Health Care Agent Care Teams Systems Coordinator Relationship Specialty Start Date End Date Moo Corona MD [address] [place] [address] PCP - General Family Medicine 06/12/23
--- OUTSIDE RECORDS SUMMARY | 2024-10-05 12:15 | XMS_ITS | Clinical Summary ---
Author Organization [facility] Address [address] [place] [id number] Care Team Providers Care Housekeeper Child Care Name Role Phone Unavailable Primary Care Provider [...] Td Vaccines ( 1 - Tdap) 1960 Pneumococcal Vaccine: 50+ Ye ars (1 of 1 - PCV) 1991 Zoster Vaccines (1 of 2) 1991 Dexa Scan (General) 2006 RSV Immunization or 60+ Years (1 - 1-dose 75+ series) 2016 COVID-19 Vaccine (2023-2 5 season) 2024 Meningococcal B Vaccine Aged Out No l onger eligible based on patient's age to complete this topic Meningococcal Vaccine Aged Out No samantha abby eligible based on patient's age to complete this topic RSV Immunizations Under 20 Months Aged Out No longer eligible based on patient's age to complete this topic
--- OUTSIDE RECORDS SUMMARY | 2024-10-05 12:15 | XMS_ITS | Encounter Summary ---
Author Organization [facility] Healthcare Address [address] [place] [address] Care Team Providers Care Shingle Catcher Name Role Phone Moo Corona MD Primary Care Prov ider Encounter Details Date Type Department Care Team (Late st Contact Info) Description 10/15/2023 Orders Only [facility] Health Information Management [address] [place] [phone] Scanning, Provider Social History Tobacco Use [...] on file Legal Sex Female 6:34 PM BLOW UP OPERATOR Gender Identity Not on file Sexual Orientation [...] documented as of this encounter Care Teams Shingle Catcher Relationship Specialty Start Date End Date Moo Corona MD [address] [place] [address] PCP - General Family Medicine 06/12/23 documented as of this encounter
--- OUTSIDE RECORDS SUMMARY | 2024-10-05 12:15 | XMS_ITS | Clinical Summary ---
Author Organization [facility] Address [address] [place] [address] Care Team Providers Care Fan Balancer Name Role Phone Moo Corona MD Primary [...] 1 tablet (25 mcg total) by mouth net architect before breakfast Active ondansetron ODT (ZOFRAN-ODT) 4 [...] Bypass graft is patent with audible signals. [place] are intact 2 surgical incisions without concern [...] Department Care Team Description 07/27/2024 10:30 AM BUCKLE SEWER MACHINE Ancillary Procedure [facility] Cardiology [address] [place] [address] [place] [phone] Cardiac pacemaker in situ; Sick sinus syndrome (HCC); Bradycardia 07/27/2024 Orders Only [facility] Cardiology [address] [place] [phone] Tobias Henley MD Cardiac pacemaker in situ (Primary Dx); Sick sinus syndrome (HCC); Bradycardia from Last 3 Months Immunizations Immunization Administration [...] Not Answered [facility] Utilities Answer Date Recorded In the past 12 months has [employer], gas, oil, or water [employer] threatened to shut off services in your [...] week 02/16/2024 How often do you attend [facility] or roman catholic services? More than 4 times per year 02/16/2024 Do you belong to any clubs o r organizations such as episcopal groups, unions, fraternal or athletic groups, or [...] any time in the past 12 m [facility], were you homeless or living in a skilled nursing (including now)? No 02/16/2024 Personal Safety Answer Date Recorded Have you ever been in or are you currently in a harmful physical or emotional relationship or is someone making you feel afraid or unsafe? Denies 02/15/2024 Comments No Sex and Gender Information Value Date Recorded Sex Assigned at Not on file Legal Sex Female 6:34 PM BUCKLE SEWER MACHINE Gender Identity Not on file Sexual Orientation Not on file Obstetrics History Last Filed Vital Signs Vital Sign Reading Time Taken Comments Blood Pressure 113/68 04/08/2024 3:41 PM BUCKLE SEWER MACHINE Pulse 63 04/08/2024 3:41 PM BUCKLE SEWER MACHINE Temperature 36.4 C (97.5 F) 04/08/2024 3:41 PM BUCKLE SEWER MACHINE Respiratory Rate 18 04/08/2024 3:41 PM BUCKLE SEWER MACHINE Oxygen Saturation 99% 04/08/2024 3:41 PM BUCKLE SEWER MACHINE Inhaled Oxygen Concentration - - Weight 49.8 kg (109 lb 12.8 oz) 04/08/2024 3:41 PM BUCKLE SEWER MACHINE Height 152.4 cm (5') 04/08/2024 3:41 PM BUCKLE SEWER MACHINE Body Mass Index 21.44 04/08/2024 3:41 PM BUCKLE SEWER MACHINE Plan of Treatment Health Maintenance Due Date Last Done Comments Depression Screening 1941 Osteoporosis Screening-Bone Density Scan 1941 Hepatitis B Screening 1959 Well Visit 65+ 2006 Covid-19 Vaccine (2023-2 5 season) 2024 03/19/2023, 03/22/2022, 09/11/2021, Additional history exists Influenza Vaccine (Season Ended) 2025 03/19/2023, 03/22/2022, 03/05/2021, Additional history exists Fall Risk Assessment 02/22/2025 02/23/2024 DTaP/Tdap/Td Vaccine (2 - Td or Tdap) 03/04/2027 03/04/2017 Pneumococcal vaccine 65+ Completed 09/11/2021 Zoster Vaccine Completed 11/23/2021, 09/26/2021 Medical Devices Implanted Type Area Slubber Hand Device Identifier Shelf Expiration Date Model / Serial / Lot [employer] 8mm 40cm Stretch Peripheral Thin Wall Graft Vascular [employer] [id number] - [id number] - [id number] Implanted:Qty: 1 on 11/26/2023 by Dylan Arango MD at [facility] Left: Leg [employer] 01/26/2028 [id number] / [id number] / Pacemaker Pacemaker N/A: Heart Procedures Procedure Name Priority Date/Time Associated Diagnosis Comments DEVICE CHECK - REMOTE Routine 07/27/2024 2:17 PM BUCKLE SEWER MACHINE Cardiac pacemaker in situ Sick sinus syndrome (HCC) Bradycardia from Last 3 Months Results * DEVICE CHECK - REMOTE (07/27/2024 2:17 PM BUCKLE SEWER MACHINE) Anatomical Region Laterality Modality Other Narrative 08/06/2024 8:34 AM BUCKLE SEWER MACHINE Biotronik Amvia Edge Dual Pacemaker. Dx; SSS, Bradycardia, Pause. DOI 10/13/2023-Fleissner. Biotronik remote. 06/01/24-MJ PAF-contraindication to AC (call note). Routine DDD Pacemaker Remote. Transmission attached. Battery status: 90% remaining battery life to ANDER. Stable lead impedances, pacing and sensing thresholds. Presenting rhythm: AP-VS. AP-81%, BUSINESS RISK CONSULTANT-14%. 4 AT/AF episodes noted, longest episode was 14 hours on 05/31/24 in duration, IEGM demonstrates Afib. No Ventricular high rate episodes detected. Medications: ASA 81 mg. See scanned report. Office pacemaker follow up: due 6-9 months. Biotronik remote f/u 11/02/2024. Minal Licea RN us Tobias Henley MD CV CARDIAC SERVICES PROC EDURES Final Result from Last 3 Months Insurance AETNA MEDICARE AETNA MEDICARE Advance Directives For more information, please contact: [phone] * Full Code (Latest Code Status on [...] Agents on File Name Relationship Healthcare Agent [facility] Communication [facility] Care Agent Care Teams Fan Balancer Relationship Specialty Start Date End Date Moo Corona MD [address] [place] [address] PCP - General Family Medicine 06/12/23
== END 2024-10-05 11:29 | disposition home or self-care (01) ==
PROVIDERS: PCP Family Medicine Adolescent Medicine; Visit Provider Family Medicine Adolescent Medicine
DX: G62.9 Polyneuropathy, unspecified (principal); E78.00 Pure hypercholesterolemia, unspecified; I10 Essential (primary) hypertension; R73.01 Impaired fasting glucose
CPT/HCPCS: 36415; 80053; 82607; 83036; 84443; 85027; 86038; 86039